=== PATIENT | male | born 1945 | race Caucasian/White ===

== ENCOUNTER 2016-10-29 03:39 | Emergency (ER) | payer MEDICARE ==
[~2016-10-29] VITALS: Ht 157.5 cm; Wt 71.7 kg
[~2016-10-29 03:39] MED LIST: ACYC400T PO; ASPI81CH5; ATOR40TA49 PO; BETH25 PO; CHOL4 PO; GLUCTAB PO; LEVEMIR SQ; LISI10 PO; NITR.4 SL; PROT40TA PO; TOPR25TA2 PO
[2016-10-29 03:43] VITALS: BP 176/82; PULSE 62; RESP 18; TEMP 98; O2SAT 98
[2016-10-29 04:10] VITALS: BP 176/82; PULSE 62; RESP 18; TEMP 98; O2SAT 98
[2016-10-29] MEDS ORDERED: ACYC400T PO (04:21)
--- NOTE | 2016-10-29 04:25 | PD ---
HPI Chief Complaint: Burn Time Seen by Provider: 04:07 Travel History International Travel<30 days: No Contact w/Intl Traveler<30days: No Traveled to known affect area: No History of Present Illness HPI 71-year-old male presents to the emergency department for complaint of rash affecting the head of the penis. Patient states that he is concerned that he may have sustained a chemical burn from a cleansing agent that he was using to clean a friend's house who has been hospitalized. Patient also very concerned that it may been exposed to MRSA as this hospitalized for and was diagnosed with this. Patient reports that approximate 10 days ago while cleaning a friend 's home he was wearing protective year gloves and coverlet but had to go to the bathroom to urinate and remove one of his gloves in order to urinate and when he put the glove back on that he may have touched his penis with a contaminated glove. Patient states he did not experience any discomfort or pain at the time of the episode of urination and did not notice any irritation for several days but 2-3 days ago started noticing some irritation at the underside of his penis near the ears or meatus and noticed aggressively worsening rash with some small blisters as well as reports that he was noticing a recurrence of his genital herpes to his right buttock cheek. Patient states he rarely has an outbreak of genital herpes and it typically affects the buttock. Patient states that he is no longer sexually active 5 years. Patient's had no urethral discharge. No dysuria frequency or urgency. Currently patient rates pain 3-410 intensity. PFSH Past Medical History Narrative Medical Dyslipidemia CAD CHF diabetes gentle herpes melanoma lymphoma hypertension pneumonia CABG; no tobacco; nursing notes reviewed Arthritis: Yes Heart Rhythm Problems: No Cancer: Yes (MELANOMA ON BACK RECENTL REMOVED) High Cholesterol: Yes Chemotherapy: Yes (LYMPH GLANDS CA) Chest Pain: Yes Congestive Heart Failure: Yes Coronary Artery Disease: Yes Diabetes: Yes Diminished Hearing: No Endocrine: Yes Genitourinary: No Hypertension: Yes Immune Disorder: No Musculoskeletal: Yes Neurologic: No Psychiatric: No Reproductive: Yes (HERPES) Respiratory: Yes (pneumonia 1960s) Thyroid Disease: No Past Surgical History Cardiac Surgery: Yes Coronary Artery Bypass Graft: Yes Ear Surgery: No Endocrine Surgery: No Eye Surgery: Yes (bl cat sx, retinal reattached right eye) Genitourinary Surgery: No Gynecologic Surgery: No Oral Surgery: No Pacemaker: No Thoracic Surgery: Yes (OPEN HEART 9 YRS. AGO) Social History Alcohol Use: No Tobacco Use: No (QUIT IN 1997) Substance Use: No Allergies-Medications (Allergen,Severity, Reaction): Coded Allergies: No Known Allergies (Verified , 10/29/16) Reported Meds & Prescriptions Reported Meds & Active Scripts Active Acyclovir 400 Mg Tab 400 Mg PO TID 5 Days Review of Systems Except as stated in HPI: all other systems reviewed are Neg Physical Exam Narrative GENERAL: Well developed well-nourished male in no acute distress no respiratory distress SKIN: Warm and dry. HEAD: Normocephalic. EYES: No scleral icterus. No injection or drainage. NECK: Supple, trachea midline. No JVD or lymphadenopathy. CARDIOVASCULAR: Regular rate and rhythm without murmurs, gallops, or rubs. RESPIRATORY: Breath sounds equal bilaterally. No accessory muscle use. GASTROINTESTINAL: Abdomen soft, non-tender, nondistended. : Uncircumcised male with erythematous vesicular rash at the head of the penis and scabbed over small area of vesicular rash to the right buttock cheek; no urethral penile discharge MUSCULOSKELETAL: No cyanosis, or edema. BACK: Nontender without obvious deformity. No CVA tenderness. Data Data Last Documented VS Vital Signs Date Time Temp Pulse Resp B/P Pulse Ox O2 Delivery O2 Flow Rate FiO2 10/29/16 04:23 62 18 98 Room Air 10/29/16 04:10 98.0 176/82 Orders Gc And Chlamydia Pcr (10/29/16 04:13) Herpes Simplex Virus Culture (10/29/16 04:13) MDM Medical Decision Making Medical Screen Exam Complete: Yes Emergency Medical Condition: Yes Medical Record Reviewed: Yes Differential Diagnosis Contact dermatitis chemical burn genital herpes Narrative Course Patient with evidence of an outbreak of history of genital herpes with vesicle lesions on the buttock and tip of the penis; patient is not aware that he is at risk for recurrence of genital herpes; patient provided education regarding genital herpes and prescription for acyclovir; patient explained that low suspicion that his concern of perhaps being exposed to a chemical or MRSA while cleaning a friend's home is source of his current vesicular rash affecting the penis. Patient is encouraged to keep area clean and can apply topical antibiotic ointment for comfort as tolerated but needs to take the antiviral agent as prescribed. Swab specimen collected and sent for resulting. Patient provided a prescription for acyclovir. Diagnosis Primary Impression: Genital herpes Qualified Code: A60.01 - Herpes simplex infection of penis Additional Impression: Contact dermatitis Qualified Code: L25.9 - Contact dermatitis, unspecified contact dermatitis type, unspecified trigger Referrals: Primary Care Physician Patient Instructions: General Instructions Additional Instructions: Cleanse area with dilute soap and water Complete course of antiviral medication Follow-up with your primary care provider Return to the emergency department for any concerns or change in condition No sexual activity while outbreak is present and only with condom protection Med/Other Pt SpecificInfo: Prescription(s) given Scripts Acyclovir 400 Mg Yiv322 Mg PO TID 5 Days Ref 1 Prov:Marija Bartlett MD 10/29/16 Disposition: 01 DISCHARGE HOME Condition: Stable Marija Bartlett MD Oct 29, 2016 04:25
[2016-10-29] MEDS ORDERED: LISI10TA3 PO (04:41)
[2016-10-29] MEDS ORDERED: ATOR40TA16 PO (04:41)
[2016-10-29] MEDS ORDERED: METO25TA6 PO (04:41)
[2016-10-29] MEDS ORDERED: METF500T PO (04:41)
[2016-10-29] MEDS ORDERED: ASPI81TA81 (04:41)
[2016-10-29 12:47] LABS: CHLAMYDIA PCR NOT DETECTED (NOT DETECT); NEISSERIA PCR NOT DETECTED (NOT DETECT)
== END 2016-10-29 04:58 | disposition home or self-care (01) ==
LOC: PHED 03:39
DX: A60.01 Herpesviral infection of penis (principal); L25.9 Unspecified contact dermatitis, unspecified cause; E78.5 Hyperlipidemia, unspecified; I25.10 Atherosclerotic heart disease of native coronary artery without angina pectoris; I50.9 Heart failure, unspecified; E11.9 Type 2 diabetes mellitus without complications; I10 Essential (primary) hypertension; E78.00 Pure hypercholesterolemia, unspecified; Z87.891 Personal history of nicotine dependence
CPT/HCPCS: 87255; 87491; 87591; 99283